=== PATIENT | female | born 1985 | race Caucasian/White ===

== ENCOUNTER → 2016-09-07 | Outpatient (CLI) | payer OTHER | LOC: FIMAGING 16:18 | PROVIDERS: ATTEND Physician Assistant | DX: M79.621 Pain in right upper arm (principal); C50.811 Malignant neoplasm of overlapping sites of right female breast ==

== ENCOUNTER → 2017-04-07 | Outpatient (CLI) | payer OTHER | LOC: FIMAGING 10:47 | PROVIDERS: ATTEND Internal Medicine Hematology & Oncology | DX: T88.8XXA Other specified complications of surgical and medical care, not elsewhere classified, initial encounter (principal); C50.811 Malignant neoplasm of overlapping sites of right female breast ==

== ENCOUNTER 2017-05-14 07:49 | Observation (INO) | payer OTHER ==
[2017-05-14] MEDS ORDERED: NS 1,000 ML IV ONE (08:00)
[2017-05-14] MEDS ORDERED: ONDANSETRON 4 MG/2 ML VIAL IVP ONE ×2 (08:00→08:05)
--- NOTE | 2017-05-14 08:08 | EDPHY ---
H & P Stated Complaint: epigastric pain - Personal History LMP (Females 10-55): Post Menopausal Current Tetanus/Diphtheria Vaccine: Yes Current Tetanus Diphtheria and Acellular Pertussis (TDAP): Yes - Medical/Surgical History Hx Asthma: No Hx Chronic Respiratory Disease: No Hx Diabetes: No Hx Cardiac Disease: No Hx Renal Disease: No Hx Cirrhosis: No Hx Alcoholism: No Hx HIV/AIDS: No Hx Splenectomy or Spleen Trauma: No Other PMH: PSH--APPY, EXP LAP, Breast CA, - Social History Smoking Status: Never smoked Time Seen by Provider: 05/14/17 07:59 HPI/ROS: CHIEF COMPLAINT: Right upper quadrant abdominal pain HISTORY OF PRESENT ILLNESS: 31-year-old female, remote history of appendectomy , complaining of right upper quadrant abdominal pain, nausea, vomiting, diarrhea since 09/20 this morning. She ate pizza for dinner last night. No back pain. No fever or chills. No diaphoresis. No chest pain. No URI symptoms. No cough. No dyspnea. REVIEW OF SYSTEMS: A ten point review of systems was performed and is negative with the exception of the items mentioned in the HPI PAST MEDICAL & SURGICAL HISTORY: Remote history of appendectomy. Double mastectomy secondary to breast cancer. SOCIAL HISTORY:Nonsmoker PHYSICAL EXAM (Prior to examination, patient consented to physical exam, hands were washed and my usual and customary physical exam procedures followed) 1) GENERAL: Well-developed, well-nourished, alert and oriented. Appears to be in no acute distress. 2) HEAD: Normocephalic, atraumatic 3) HEENT: Pupils equal, round, reactive to light bilaterally. Sclera anicteric. 4) NECK: Full range of motion, no meningeal signs. 5) LUNGS: Clear auscultation bilaterally, no wheezes, no rhonchi, no retractions. 6) HEART: Regular rate and rhythm, no murmur, no heave, no gallop. 7) ABDOMEN: No guarding, no rebound, no focal tenderness, negative McBurney's, positive Vasquez's, negative Rovsing's, negative peritoneal sign, 8) MUSCULOSKELETAL: Moving all extremities, no focal areas of tenderness, no obvious trauma. No peripheral edema or discoloration. 9) BACK: No CVA tenderness, no midline vertebral tenderness, no fluctuance, no step-off, no obvious trauma, no visual or palpable abnormality. 10) SKIN: No rash, no petechiae. 11) Psychiatric: Patient is oriented X 3, there is no agitation. DIFFERENTIAL DIAGNOSIS: In no particular order, including but not limited to biliary colic, cholecystitis, peptic ulcer disease, pancreatitis, and gastroenteritis. This is a partial list of diagnoses considered. These considerations are based on history, physical exam, past history and reassessment. (Quincy Fleming) Constitutional: Initial Vital Signs Temperature (C) 36.8 C 05/14/17 07:56 Heart Rate 65 05/14/17 07:56 Respiratory Rate 16 05/14/17 07:56 Blood Pressure 137/87 H 05/14/17 07:56 O2 Sat (%) 100 05/14/17 07:56 O2 Delivery Mode Nasal Cannula Allergies/Adverse Reactions: No Known Allergies Allergy (Unverified 05/14/17 07:55) Home Medications: Medication Instructions Recorded Adderall Xr 10 mg Capsule 05/14/17 Anastrozole 05/14/17 Venlafaxine HCl 05/14/17 Zoladex 05/14/17 Medical Decision Making - Diagnostics Imaging Results: Imaging Impressions Abdomen Ultrasound 05/14/17 08:05 Impression: Cholelithiasis with a positive Vasquez's sign, consistent with mild acute cholecystitis. Results called and discussed with Quincy Fleming, at 05/14/2017 9:10 ED Course/Re-evaluation: 8:08 a.m.: Care of patient under supervision of secondary supervising physician Dr Mccormack with whom I discussed care . Plan will be IV hydration, ultrasound, laboratory studies. 9:21 a.m.: Discussed the imaging results with radiologist, consultation with Dr. Bayron Brasher at this time who recommends surgical intervention. Patient last ate pizza for dinner last evening. She will be given IV antibiotic and admission to Dr. Brasher with plan on surgery later today (Quincy Fleming) I evaluated this patient with Arnold Fleming. I discussed the laboratory findings and discuss the ultrasound findings with radiologist Alfred Drake. This patient has cholelithiasis and most likely a gastrointestinal illness concomitantly. She will be admitted to get her gallbladder out since she wants it out. (Rao Mccormack) - Data Points Laboratory Results: Laboratory Results 05/14/17 08:15 05/14/17 09:18 05/14/17 05/14/17 05/14/17 09:18 08:15 08:15 WBC RBC Hgb Hct MCV MCH MCHC RDW Plt Count MPV Neut % (Auto) Lymph % (Auto) Freestone % (Auto) Eos % (Auto) Baso % (Auto) Nucleat RBC Rel Count Absolute Neuts (auto) Absolute Lymphs (auto) Absolute Monos (auto) Absolute Eos (auto) Absolute Basos (auto) Absolute Nucleated RBC Immature Gran % Immature Gran # Turbidity TNP Sodium 145 mEq/L mEq/L TNP (135-145) Potassium 4.3 mEq/L mEq/L TNP (3.5-5.2) Chloride 109 mEq/L mEq/L TNP (97-110) Carbon Dioxide 23 mEq/l mEq/l TNP (22-31) Anion Gap 13 mEq/L mEq/L TNP (8-16) BUN 15 mg/dL mg/dL TNP (7-23) Creatinine 0.8 mg/dL mg/dL TNP (0.6-1.0) Estimated GFR > 60 TNP Glucose 98 mg/dL mg/dL TNP (70-100) Calcium 9.4 mg/dL mg/dL TNP (8.5-10.4) Total Bilirubin 0.4 mg/dL mg/dL TNP (0.1-1.4) Conjugated Bilirubin 0.2 mg/dL mg/dL TNP (0.0-0.5) Unconjugated Bilirubin 0.2 mg/dL mg/dL TNP (0.0-1.1) AST 26 IU/L IU/L TNP (14-46) ALT 34 IU/L IU/L TNP (9-52) Alkaline Phosphatase 71 IU/L IU/L TNP (38-126) Total Protein 7.0 g/dL g/dL TNP (6.3-8.2) Albumin 4.0 g/dL g/dL TNP (3.5-5.0) Lipase 117 IU/L IU/L TNP (23-300) Beta HCG, Qual NEGATIVE Specimen Hemolysis TNP 05/14/17 08:15 WBC 6.02 10^3/uL 10^3/uL (3.80-9.50) RBC 4.67 10^6/uL 10^6/uL (4.18-5.33) Hgb 14.7 g/dL g/dL (12.6-16.3) Hct 45.0 % % (38.0-47.0) MCV 96.4 fL fL (81.5-99.8) MCH 31.5 pg pg (27.9-34.1) MCHC 32.7 g/dL g/dL (32.4-36.7) RDW 13.2 % % (11.5-15.2) Plt Count 213 10^3/uL 10^3/uL (150-400) MPV 10.8 fL fL (8.7-11.7) Neut % (Auto) 64.5 % % (39.3-74.2) Lymph % (Auto) 26.4 % % (15.0-45.0) Freestone % (Auto) 7.3 % % (4.5-13.0) Eos % (Auto) 0.7 % % (0.6-7.6) Baso % (Auto) 0.8 % % (0.3-1.7) Nucleat RBC Rel Count 0.0 % % (0.0-0.2) Absolute Neuts (auto) 3.88 10^3/uL 10^3/uL (1.70-6.50) Absolute Lymphs (auto) 1.59 10^3/uL 10^3/uL (1.00-3.00) Absolute Monos (auto) 0.44 10^3/uL 10^3/uL (0.30-0.80) Absolute Eos (auto) 0.04 10^3/uL 10^3/uL (0.03-0.40) Absolute Basos (auto) 0.05 10^3/uL 10^3/uL (0.02-0.10) Absolute Nucleated RBC 0.00 10^3/uL 10^3/uL (0-0.01) Immature Gran % 0.3 % % (0.0-1.1) Immature Gran # 0.02 10^3/uL 10^3/uL (0.00-0.10) Turbidity Sodium Potassium Chloride Carbon Dioxide Anion Gap BUN Creatinine Estimated GFR Glucose Calcium Total Bilirubin Conjugated Bilirubin Unconjugated Bilirubin AST ALT Alkaline Phosphatase Total Protein Albumin Lipase Beta HCG, Qual Specimen Hemolysis Medications Given: Discontinued Medications Sodium Chloride (Ns) 1,000 mls @ 0 mls/hr IV EDNOW ONE; Wide Open PRN Reason: Protocol Stop: 05/14/17 08:01 Last Admin: 05/14/17 08:20 Dose: 1,000 mls Ondansetron HCl (Zofran) 4 mg IVP EDNOW ONE Stop: 05/14/17 08:01 Last Admin: 05/14/17 08:20 Dose: 4 mg Ondansetron HCl (Zofran) 4 mg IVP EDNOW ONE Stop: 05/14/17 08:06 Last Admin: 05/14/17 08:25 Dose: Not Given Departure - Departure Disposition: [facility] Inpatient Acute Clinical Impression: Cholelithiasis Condition: Fair
[2017-05-14 08:43] LABS: PLATELET COUNT 213 10^3/uL (150-400)
--- NOTE | 2017-05-14 11:45 | ASMTCMCOM ---
CM Note CM Note Notes: Reviewed chart. Patient presented to the ER with pain in her abdomen/right upper quadrant; admitted for cholelithiasis requiring surgery later today. Pt has a boyfriend and lives in [place]. Anticipate pt will likely discharge home independently when medically stable. CM will cont to follow for any potential needs. Current Discharge Plan: Home independently Date Signed: 05/14/2017 11:44 AM Electronically Signed By:Lizeth Durbin RN
[2017-05-14] MEDS ORDERED: MIDAZOLAM 2 MG/2 ML VIAL IVP ONE (13:41)
--- NOTE | 2017-05-14 13:41 | PDANEPAE ---
ANE History of Present Illness cholecystitis, here for cholecystectomy ANE Past Medical History - Cardiovascular History Hx Hypertension: No Hx Arrhythmias: No Hx Chest Pain: No Hx Coronary Artery / Peripheral Vascular Disease: No - Pulmonary History Hx COPD: No Hx Asthma/Reactive Airway Disease: No Hx Sleep Apnea: No Sleep Apnea Screening Result - Last Documented: Negative - Endocrine History Hx Diabetes: No - Cancer History Hx Cancer: Yes Cancer History Comment: Breast ANE Review of Systems Review of Systems: - Exercise capacity Exercise capacity: >=4 METS ANE Patient History - Allergies Allergies/Adverse Reactions: No Known Allergies Allergy (Unverified 05/14/17 07:55) - Home Medications Home Medications: Amphet Asp and D/Amphet [Adderall 10 MG (*)] 30 mg PO DAILY PRN 05/14/17 [Last Taken Unknown] Anastrozole [Arimidex 1 mg (*)] 1 mg PO DAILY 05/14/17 [Last Taken 05/13/17] Goserelin Acetate [Zoladex] 3.6 mg SQ .MONTHLY 05/14/17 [Last Taken 04/21/17] Venlafaxine Xr [Effexor Xr] 150 mg PO DAILY 05/14/17 [Last Taken 05/13/17] - NPO status NPO Since - Liquids (Date): 05/13/17 NPO Since - Liquids (Time): 05:00 NPO Since - Solids (Date): 05/13/17 NPO Since - Solids (Time): 18:30 - Anes Hx Anes Hx: post operative nausea and vomiting - Smoking Hx Smoking Status: Never smoked - Alcohol Use Alcohol Use: Rarely - Family Anes Hx Family Anes Hx: none ANE Labs/Vital Signs - Labs Result Diagrams: 05/14/17 08:15 05/14/17 09:18 - Vital Signs Blood Pressure: 115/66 Heart Rate: 65 Respiratory Rate: 20 O2 Sat (%): 99 Height: 180.34 cm Weight: 108.862 kg ANE Physical Exam - Airway Neck exam: FROM Mallampati Score: Class 1 Mouth exam: normal dental/mouth exam - Pulmonary Pulmonary: no respiratory distress, clear to auscultation - Cardiovascular Cardiovascular: regular rate and rhythym, no murmur, rub, or gallop - ASA Status ASA Status: II ANE Anesthesia Plan Anesthesia Plan: general endotracheal anesthesia
[2017-05-14] MEDS ORDERED: MIDAZOLAM 2 MG/2 ML VIAL ONE (13:43)
[2017-05-14] MEDS ORDERED: SCOPOLAMINE HYDROBROMIDE 1 MG/3 DAYS PATCH TD ONE (13:43)
[2017-05-14] MEDS ORDERED: SCOPOLAMINE HYDROBROMIDE 1 MG/3 DAYS PATCH TD SCH (13:45)
[2017-05-14] MEDS ORDERED: fentaNYL 100 MCG/2 ML INJ ONE ×3 (13:53→15:28)
[2017-05-14] MEDS ORDERED: PROPOFOL 200 MG/20 ML VIAL ONE (13:53)
[2017-05-14] MEDS ORDERED: ROCURONIUM 50 MG/5 ML VIAL ONE ×2 (13:56→14:28)
[2017-05-14] MEDS ORDERED: LIDOCAINE 2% 100 MG/5 ML SYR ONE (13:56)
[2017-05-14] MEDS ORDERED: BUPIVACAINE 0.5% 30 ML SDV ONE (14:03)
[2017-05-14] MEDS ORDERED: NALOXONE HCL 0.4 MG/ML INJ IVP PRN (15:10)
[2017-05-14] MEDS ORDERED: fentaNYL 100 MCG/2 ML INJ IVP PRN (15:10)
[2017-05-14] MEDS ORDERED: ONDANSETRON 4 MG/2 ML VIAL IVP PRN ×2 (15:10→16:07)
[2017-05-14] MEDS ORDERED: HYDROmorphONE/DILAUDID 1 MG/ML INJ IVP PRN (15:10)
--- NOTE | 2017-05-14 15:10 | POSTANESTH ---
Post Anesthetic Evaluation Cardiovascular Status: Normal, Stable, Similar to Pre-Op Cond Respiratory Status: Normal, Stable, Similar to Pre-op Cond. Level of Consciousness/Mental Status: Can Participate in Eval, Alert and Oriented Pain Control: Adequate, Prn Tx Ordered Nausea/Vomiting Control: Adequate, Prn Tx Ordered Complications Possibly Related to Anesthesia: None Noted
[2017-05-14] MEDS ORDERED: ONDANSETRON 4 MG/2 ML VIAL ONE (15:39)
--- NOTE | 2017-05-14 16:04 | POSTOPPROG ---
Post Op Note Date of Operation: 05/14/17 Surgeon: Bayron Brasher Anesthesiologist: LISSETH Anesthesia: GET(General Endotracheal) Pre-op Diagnosis: ACUTE CHOLEYSTITIS Post-op Diagnosis: SAME Indication: PAIN Procedure: LAP CHOLY Findings: EDEMATOUS GALLBLADDER WITH MULTIPLE STONES AND SMALL DUCTS Inf/Abcess present in the surg proc area at time of surgery?: Yes Depth: Organ Space EBL: Minimal Complications: NONE Specimen(s): GALLBLADDER
[2017-05-14] MEDS ORDERED: ADDERALL 10 MG TAB PO PRN (16:09)
[2017-05-14] MEDS ORDERED: GOSERELIN ACETATE 3.6 MG SQ SCH (16:15)
[2017-05-14] MEDS ORDERED: D5W 1/2 NS W/ 20 KCl/L 1,000 ML IV SCH (16:15)
[2017-05-14] MEDS: HYDROmorphONE/DILAUDID 1 MG/ML INJ IVP PRN ×2 (16:59→19:25)
[2017-05-14] MEDS ORDERED: KETOROLAC 15 MG/1 ML SDV IVP SCH (18:00)
[2017-05-14] MEDS: KETOROLAC 15 MG/1 ML SDV IVP SCH (21:32)
[2017-05-14] MEDS: OXYCODONE/APAP 5/325 TAB PO PRN (21:44)
[2017-05-15] MEDS: KETOROLAC 15 MG/1 ML SDV IVP SCH ×2 (02:26→08:46)
[2017-05-15] MEDS: OXYCODONE/APAP 5/325 TAB PO PRN ×4 (02:26→11:00)
[2017-05-15 02:45] VITALS: O2SAT 98
[2017-05-15 08:00] VITALS: BP 103/75; PULSE 57; RESP 16; TEMP 98
[2017-05-15] MEDS ORDERED: ANASTROZOLE 1 MG TAB PO SCH (09:00)
[2017-05-15] MEDS ORDERED: VENLAFAXINE XR 150 MG CAP PO SCH (09:00)
--- NOTE | 2017-05-15 09:20 | SOAPPROG ---
SOAP Progress Note Assessment/Plan: Assessment/Plan: 31 Y F s/p lap vane. Doing well. D/c to home. S: eating, pain controlled, no n/v. O: alert, nad no jaundice no wob abd soft, inc cdi 05/15/17 09:19 Objective: Vital Signs Temp Pulse Resp BP Pulse Ox 36.6 C 57 L 16 103/75 98 05/15/17 07:20 05/15/17 07:20 05/15/17 07:20 05/15/17 07:20 05/15/17 07:20 05/14/17 05/15/17 05/16/17 05:59 05:59 05:59 Intake Total 2525 Balance 2525 ICD10 Worksheet Patient Problems: Problems Problem Status Onset Cholelithiasis Acute
[2017-05-22] MEDS ORDERED: GOSERELIN ACETATE 3.6 MG SQ SCH (09:00)
== END 2017-05-15 11:25 | disposition home or self-care (01) ==
LOC: FOB 11:00
PROVIDERS: ADMIT Surgery; ATTEND Surgery
PROC: 0FT44ZZ Resection of Gallbladder, Percutaneous Endoscopic Approach (ICD-10-PCS; principal; 2017-05-14 14:00)
DX: K80.10 Calculus of gallbladder with chronic cholecystitis without obstruction (principal); Z85.3 Personal history of malignant neoplasm of breast
CPT/HCPCS: 47562; 76705; G0378; 96374; J0690; J1170; J1885; J2001; J2250; J2405; J2704; J3010

== ENCOUNTER 2017-05-21 14:19 | Emergency (ER) | payer OTHER ==
[2017-05-21] MEDS ORDERED: PROPARACAINE 0.5% 15 ML OPHT DROP ONE (15:30)
--- NOTE | 2017-05-21 15:33 | EDPHY ---
H & P Time Seen by Provider: 05/21/17 15:13 HPI/ROS: CHIEF COMPLAINT: Right eye dilated HISTORY OF PRESENT ILLNESS: The patient is a 31-year-old female status post cholecystectomy 1 week ago. She noticed that her right eye was dilated when she woke at 8:45 a.m. this morning. She states that she has some blurred vision on distance. She has improved vision close up. She wears contact lenses normally. She has not changed her contact lens solution. She is but nothing in her eye recently. She denies any tarb-hxg-njiwsha medication. No trauma or fall. No headache. No focal weakness or numbness. Patient denies any facial symptoms. REVIEW OF SYSTEMS: My complete review of systems is negative except as mentioned in the HPI. Past Medical/Surgical History: Includes breast cancer Past surgical history: Appendectomy, double mastectomy, cholecystectomy Social history: Patient does not smoke Smoking Status: Never smoked Physical Exam: 37.0, 141/104, 16, 97% on room air GENERAL: Well-appearing, in no acute distress, alert. Visual acuity: Noted. Eyelids: Normal inspection, everted for exam. Conjunctiva and sclera: Normal inspection. No foreign material. No subconjunctival hemorrhage. No exudate. Not injected. Corneas: Normal inspection. Examined with fluorescein dye: No uptake, abrasion, or ulcer. EOMs: Intact. Pupils: Right pupil is dilated. Minimally responsive. No pupil constriction with accommodation. Anterior chambers: Normal inspection. No hyphema. No cells or flare. Posterior segments: Normal funduscopic exam HEENT: Eyes exam above, normal pharynx, no signs of dehydration. NECK: No thyromegaly, no lymphadenopathy, supple. RESPIRATORY: Clear to auscultation bilaterally, no rales, rhonchi or wheezing. CVS: Regular rate and rhythm, no rubs, murmurs, or gallops. ABDOMEN: Soft, nontender, nondistended, no organomegaly. BACK: Normal to inspection, no CVA tenderness. SKIN: Normal color, no rash, warm, dry. No pallor. EXTREMITIES: No pedal edema, no calf tenderness, no Homans sign or cords, no joint swelling. NEURO/PSYCH: Higher functions: Alert and Oriented x3. Normal speech and cognition. Normal mood and affect. Cranial nerves: Normal as tested. Cerebellar: Normal as tested. Good finger to nose, good [id number], normal gait. Peripheral exam: Normal motor exam. Normal sensation. Constitutional: Initial Vital Signs Temperature (C) 37.0 C 05/21/17 14:32 Respiratory Rate 16 05/21/17 14:32 Blood Pressure 141/104 H 05/21/17 14:32 O2 Sat (%) 97 05/21/17 14:32 O2 Delivery Mode Room Air Allergies/Adverse Reactions: No Known Allergies Allergy (Unverified 05/14/17 07:55) Home Medications: Medication Instructions Recorded Amphet Asp and D/Amphet [Adderall 30 mg PO DAILY PRN 05/14/17 10 MG (*)] Anastrozole [Arimidex 1 mg (*)] 1 mg PO DAILY 05/14/17 Goserelin Acetate [Zoladex] 3.6 mg SQ .MONTHLY 05/14/17 Venlafaxine Xr [Effexor Xr] 150 mg PO DAILY 05/14/17 oxyCODONE/APAP 5/325 [Percocet 1 - 2 tab PO Q4 PRN #30 tab 05/15/17 5/325 (*)] Medical Decision Making - Diagnostics Imaging Results: Imaging Impressions Brain MRI 05/21/17 16:20 Impression: 1. Empty sella which can be seen incidentally, as well as with idiopathic intracranial hypertension and other etiologies. 2. No acute intracranial findings. 3. Additional findings, as above. Findings discussed with Carolyn Mccormack MD on May 21, 2017 at 1711 hours. ED Course/Re-evaluation: In the emergency department I discussed possible etiologies with the patient. I answered all her questions. I paged Ophthalmology. I discussed case with Dr. Tom. He requested that I ask the patient if she had a scopolamine patch her surgery. She states she did but she took it off on Monday. She states she has not touched pat dry since that time. She is sure that her eye was not dilated in the last 2 days. He recommended that the patient not have further imaging at this time with a normal neuro exam. He recommend patient see him in 2 days if she continues to have a dilated pupil. The patient's brother is a physician. I spoke with him on the phone. After an explanation of the plan, he would prefer the patient an MRI prior to leaving the emergency department. This was ordered. MRI: Patient was noted to have an empty sella. No other abnormality noted. No swelling or compression on cranial nerves. 1745: I discussed the results with the patient. I answered all her questions. No new focal deficits on exam. She is given warnings prior to leaving. She will follow up with cartography teacher in 2 days if her symptoms persist. Differential Diagnosis: My differential includes but is not limited to traumatic mydriasis, medication reaction, cranial nerve palsy, mass, malignancy, CRAO, CRVO, glaucoma Departure - Departure Disposition: Home, Routine, Self-Care Clinical Impression: Pupil dilation Condition: Good Instructions: Blurred Vision (ED) Additional Instructions: Call Dr. Tom in to be seen in 2 days if you continue to have a dilated pupil. Return sooner if you have any focal neurologic deficits or any other control. Referrals: AL MOHAMUD [Other] - 2-3 days, if not improved Roxanne Tom MD [Medical Doctor] - 1-2 days without fail
[2017-05-21 17:56] VITALS: BP 123/89; PULSE 78; RESP 18; TEMP 98.2; O2SAT 96
== END 2017-05-21 17:54 | disposition home or self-care (01) ==
DX: H57.04 Mydriasis (principal); Z85.3 Personal history of malignant neoplasm of breast

== ENCOUNTER 2017-10-12 06:26 | Day surgery (SDC) | payer OTHER ==
--- NOTE | 2017-09-29 13:26 | GHP ---
[f rep st] PREOP HISTORY AND PHYSICAL DATE OF ADMISSION: 10/12/2017 PREOPERATIVE DIAGNOSIS: History of breast cancer, needs bilateral salpingo-oophorectomy for treatmen t of her breast cancer. SURGERY TO BE PERFORMED: Laparoscopic bilateral salpingo-oophorectomy. SURGERY DATE: October 12, 2017 at 8:15 am. HISTORY OF PRESENT ILLNESS: Mary is a 31-year-old 0 who was diagnosed with stage IIA mult icentric right breast cancer in 2015. She is status post bilateral mastectomy, chemotherapy, and rad iation, and she is on continuous anti-hormone therapy for her breast cancer. She is under care regim en at [facility] with Dr. Terry, and she had been on tamoxifen. Originally, she has been changed to Arimidex and originally was on Lupron but now is on anastrozole for hormonal suppression. She has d ecided with Dr. Terry that her treatment regimen would be dramatically simplified and hopefully she grant l have less side effects if she is made surgically menopausal instead of having to be created menopau yehuda with anti-hormone therapy, and she desires a bilateral salpingo-oophorectomy, and I am in agreeme nt with this. Patient has been amenorrheic since her breast cancer diagnosis 2 years ago and has no periods now. PAST OB HISTORY: She is 0 and has never been , does not desire to become ev er. PAST GYNECOLOGICAL HISTORY: She had a normal menstrual cycle in her life until October of 2015. She sanderson d menarche at age 16 with 5 days, moderate flow, moderate cramping. She had used oral contraceptive pills in the past. She has never had a history of an abnormal Pap smear. The most recent Pap smear was in January of 2016. It was negative with a negative HPV. PAST MEDICAL HISTORY: Significant for her breast cancer diagnosed at age 30, ERPR receptor positive. She has had full genetic testing and is negative for any known genetic variants at this time. She also has a history of attention deficit hyperactivity disorder and is treated symptomatically for thi s. PAST SURGICAL HISTORY: In 2003, she had an appendectomy. In 2015, she underwent her bilateral maste ctomy and reconstruction, and she will also have a modified reconstruction performed at the time of o ur surgery, and in April 2017, she had a laparoscopic cholecystectomy. ALLERGIES: She has no known drug allergies. MEDICATIONS: Effexor 70 mg daily, Adderall XR 30 mg daily, lorazepam 0.5 mg as needed, Zometa inject ions every 6 months, and anastrozole monthly which she hopes to be able to stop. SOCIAL HISTORY: She is engaged. She has been with her partner of 7 years. 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 She denies tobacco use. Is a social drinker 2-3 times a week. Denies drug use. Moder ate caffeine, and moderate exercise. FAMILY HISTORY: Significant for a mother with diabetes and thyroid disease and high blood pressure. Her father has high blood pressure as well. Her aunt had breast cancer at age 40, and her grandfath er had prostate cancer, and that is all significant family history. REVIEW OF SYSTEMS: Negative 10-point review of systems except for pertinent positives as above. OBJECTIVE: VITAL SIGNS: Weight is 247, blood pressure 114/60. GENERAL: She is a well-developed, w ell-nourished white female in no acute distress. LUNGS: Clear to auscultation bilaterally. HEART: Regular rate and rhythm no murmur. ABDOMEN: Soft, nontender, nondistended. Normal bowel sounds. PELVIC: She has a normal pelvic exam, normal external genitalia, normal nulliparous cervix. Uterus and ovaries are within normal limits. No masses. ASSESSMENT AND PLAN: A 31-year-old 0 with a history of stage II breast cancer, needs a bilat eral salpingo-oophorectomy to simplify her breast cancer treatment regimen. She is scheduled for the surgery. She understands the risks and benefits with risks including bleeding; infection; damage to internal organs, uterus, tubes, ovaries, bowel, bladder, nerves, blood vessels, ureters; need for op en procedure; need for additional procedures. /[id number]/MODL
[2017-10-12] MEDS ORDERED: ceFAZolin 2 GM/DEXTROSE 100 ML IV ONE (06:34)
[2017-10-12] MEDS ORDERED: LR 1,000 ML IV ONE (06:35)
[2017-10-12] MEDS ORDERED: fentaNYL 250 MCG/5 ML INJ ONE (07:56)
[2017-10-12] MEDS ORDERED: PROPOFOL/EMULSION 500 MG/50 ML BOTTLE IV ONE ×3 (07:57→10:49)
[2017-10-12] MEDS ORDERED: MIDAZOLAM 2 MG/2 ML VIAL ONE (08:06)
--- NOTE | 2017-10-12 08:09 | PDHPUP ---
History & Physical Update H&P update statement: This history and physical update is based on an assessment of the patient which was completed after admission or registration (within 24 hours), but prior to the surgery/procedure. H&P update: H&P reviewed & patient examined, no change in patient's condition since H&P completed
[2017-10-12] MEDS ORDERED: MIDAZOLAM 2 MG/2 ML VIAL IVP ONE (08:11)
[2017-10-12] MEDS ORDERED: BUPIVACAINE/EPI 0.5% 30 ML SDV ONE (08:12)
[2017-10-12] MEDS ORDERED: BACITRACIN ZINC 14.2 GM OINTTUBE TP ONE (08:12)
[2017-10-12] MEDS ORDERED: LIDOCAINE 1% 300 MG/30 ML SDV ONE (08:13)
[2017-10-12] MEDS ORDERED: EPINEPHrine 30 MG/30 ML MDV (0.1 MG/0.1 ML) ONE ×2 (08:13→11:24)
--- NOTE | 2017-10-12 08:14 | PDANEPAE ---
ANE History of Present Illness 31 year old woman for salpingo oophorectomy and breast implant exchange. ANE Past Medical History - Cardiovascular History Hx Hypertension: No Hx Arrhythmias: No Hx Chest Pain: No Hx Coronary Artery / Peripheral Vascular Disease: No Hx CHF / Valvular Disease: No Hx Palpitations: No - Pulmonary History Hx COPD: No Hx Asthma/Reactive Airway Disease: No Hx Recent Upper Respiratory Infection: No Hx Oxygen in Use at Home: No Hx Sleep Apnea: No Sleep Apnea Screening Result - Last Documented: Negative - Neurologic History Hx Cerebrovascular Accident: No Hx Seizures: No Hx Dementia: No - Endocrine History Hx Diabetes: No - Renal History Hx Renal Disorders: No - Liver History Hx Hepatic Disorders: No - Neurological & Psychiatric Hx Hx Neurological and Psychiatric Disorders: Yes Neurological / Psychiatric History 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 depression - Cancer History Hx Cancer: Yes Cancer History Comment: Breast - Congenital Disorder History Hx Congenital Disorders: No - GI History Hx Gastrointestinal Disorders: No - Other Health History Other Health History: none - Chronic Pain History Chronic Pain: No - Surgical History Prior Surgeries: choleystectomy. bilat mastectomy with lymph node removal 2015. right arm resticted ANE Review of Systems Review of systems is: negative Review of Systems: - Exercise capacity METS (RN): 5 METS ANE Patient History - Allergies Allergies/Adverse Reactions: No Known Allergies Allergy (Verified 09/25/17 11:11) - Home Medications Home Medications: Amphet Asp and D/Amphet [Adderall 10 MG (*)] 05/14/17 [Last Taken 10/11/17] Anastrozole [Arimidex 1 mg (*)] 05/14/17 [Last Taken 10/12/17 05:00] Goserelin Acetate [Zoladex] 05/14/17 [Last Taken 10/06/17] Venlafaxine Xr [Effexor Xr] 05/14/17 [Last Taken 10/12/17 05:00] Lorazepam 09/25/17 [Last Taken 10/11/17] Multivitamins 09/25/17 [Last Taken 10/05/17] - NPO status NPO Since - Liquids (Date): 10/12/17 NPO Since - Liquids (Time): 05:00 NPO Since - Solids (Date): 10/11/17 NPO Since - Solids (Time): 21:00 - Smoking Hx Smoking Status: Never smoked - Family Anes Hx Family Hx Anesthesia Complications: none ANE Labs/Vital Signs - Vital Signs Blood Pressure: 116/78 Heart Rate: 72 Respiratory Rate: 16 O2 Sat (%): 96 Height: 180.34 cm Weight: 108.862 kg ANE Physical Exam - Airway Neck exam: FROM Mallampati Score: Class 1 Mouth exam: normal dental/mouth exam - Pulmonary Pulmonary: no respiratory distress - Cardiovascular Cardiovascular: regular rate and rhythym - ASA Status ASA Status: II ANE Anesthesia Plan Anesthesia Plan: general endotracheal anesthesia
[2017-10-12] MEDS ORDERED: ceFAZolin 1 GM/5 ML SYR ONE ×2 (08:16→11:44)
[2017-10-12] MEDS ORDERED: GENTAMICIN SULFATE 80 MG/2 ML VIAL ONE ×2 (08:16→11:43)
[2017-10-12] MEDS ORDERED: BACITRACIN 50,000 UNITS/10 ML SYR IRR ONE ×2 (08:16→11:44)
[2017-10-12] MEDS ORDERED: SCOPOLAMINE HYDROBROMIDE 1 MG/3 DAYS PATCH TD ONE (08:32)
[2017-10-12] MEDS ORDERED: METHYLENE BLUE 0.5% 50 MG/10 ML AMP ONE (08:35)
[2017-10-12] MEDS ORDERED: SCOPOLAMINE HYDROBROMIDE 1 MG/3 DAYS PATCH TD SCH (08:45)
[2017-10-12] MEDS ORDERED: fentaNYL 100 MCG/2 ML INJ IVP PRN (08:58)
[2017-10-12] MEDS ORDERED: ONDANSETRON 4 MG/2 ML VIAL IVP PRN (08:58)
[2017-10-12] MEDS ORDERED: ALBUTEROL 3 ML DEYVIAL IH PRN (08:58)
[2017-10-12] MEDS ORDERED: DEXAMETHASONE 4 MG/ML VIAL IVP PRN (08:58)
[2017-10-12] MEDS ORDERED: NALOXONE HCL 0.4 MG/ML INJ IVP PRN (08:58)
[2017-10-12] MEDS ORDERED: HYDROCODONE/APAP 5/325 TAB PO PRN ×2 (08:58→10:03)
[2017-10-12] MEDS ORDERED: ACETAMINOPHEN 500 MG TAB PO PRN (08:58)
[2017-10-12] MEDS ORDERED: PROMETHAZINE HCL 25 MG/ML INJ IVP PRN (08:58)
[2017-10-12] MEDS ORDERED: LABETALOL HCL 5 MG/ML 20 ML MDV IVP PRN (08:58)
[2017-10-12] MEDS ORDERED: oxyCODONE IR 5 MG TAB PO PRN (08:58)
[2017-10-12] MEDS ORDERED: LR 500 ML IV PRN (08:58)
[2017-10-12] MEDS ORDERED: MEPERIDINE 25 MG/0.5 ML AMP IVP PRN (08:58)
[2017-10-12] MEDS ORDERED: LABETALOL HCL 5 MG/ML 20 ML MDV ONE (09:35)
[2017-10-12] MEDS ORDERED: SILVER NITRATE APPLICATOR 1 APPL TP ONE (09:54)
[2017-10-12] MEDS: BUPIVACAINE 0.25% 30 ML SDV ONE ×2 (09:58→13:18)
[2017-10-12] MEDS ORDERED: IBUPROFEN 600 MG TAB PO PRN (10:03)
[2017-10-12] MEDS ORDERED: HYDROmorphONE/DILAUDID 2 MG/ML INJ ONE (10:08)
[2017-10-12] MEDS ORDERED: LIDO/EPI 1% **for epidural** 30 ML SDV ONE (10:08)
--- NOTE | 2017-10-12 10:08 | POSTOPPROG ---
Post Op Note Date of Operation: 10/12/17 Surgeon: Bernie العلي Tax Compliance Agent: Dr. Kassy Bo Anesthesiologist: Dr. Balbina Mitchell Anesthesia: GET(General Endotracheal) Pre-op Diagnosis: breast cancer needing oopherectomy for treatment Post-op Diagnosis: same, omental adhesions to abdominal wall Procedure: Laparoscopic Bilateral Salpingo-oopherectomy, lysis of adhesions Inf/Abcess present in the surg proc area at time of surgery?: No Depth: Organ Space EBL: Minimal Total fluids administered: 1000 Complications: none Specimen(s): bilateral fallopian tubes and ovaries
--- NOTE | 2017-10-12 10:49 | GOP ---
[f rep st] OPERATIVE REPORT DATE OF OPERATION: 10/12/2017 SURGEON: Bernie العلي MD [facility] OPERATOR: Kassy Bo DO. ANESTHESIA: General anesthesia. ANESTHESIOLOGIST: Glendy Mitchell MD. PREOPERATIVE DIAGNOSIS: History of breast cancer requiring oophorectomy for treatment. POSTOPERATIVE DIAGNOSIS: History of breast cancer requiring oophorectomy for treatment. Lysis of ab dominal adhesions. PROCEDURE PERFORMED: Laparoscopic bilateral salpingo-oophorectomy and lysis of abdominal adhesions. FINDINGS: SPECIMENS: Bilateral tubes and ovaries. The patient is still under anesthesia currently and her 2nd portion of her procedure, her revised rec onstruction, is taking place now and that will be dictated separately. ESTIMATED BLOOD LOSS: Less than 50 cc. INDICATIONS: The patient is a 31-year-old 0 who was diagnosed with stage IIA multicentric ri ght breast cancer in 2016. She is status post bilateral mastectomy, chemotherapy, and radiation, and she is on continuous anti hormone therapy for her breast cancer. She is under care at [facility] with Dr. Terry. She has been on tamoxifen, Arimidex, Lupron, and now anastrozole for h ormonal suppression. She and Dr. Terry have decided that her treatment regimen would be dramatically s implified and hopefully she would have much less side effects if she could become surgically menopaus al, and she wishes to have her ovaries removed. The patient is not BRCA mutation positive. The daniel ent was consented for the procedure. She understood the risks and benefits, the risks including blee ding, infection, damage to internal organs, uterus, tubes, ovaries, bowel, bladder, nerves, blood ves sels, ureters, need for additional procedures, need for open procedure, and menopausal symptoms after removal of her ovaries. She understood these risks and benefits and agreed to proceed. DESCRIPTION OF PROCEDURE: Patient was taken to the operating room where she was placed under general anesthesia without difficulty. She was prepped and draped in the dorsal lithotomy position, and a F oley catheter was placed in her bladder. After adequate anesthesia was documented and a WHO time-out was performed, an open-sided speculum was placed in the vagina, and a single-tooth tenaculum was use d to grasp the anterior lip of the cervix. Her ParaGard IUD was removed without difficulty. An acor n uterine manipulator was placed through the cervical os and attached to the single-tooth tenaculum. The patient was then placed flat and attention was turned to the abdominal portion of the procedure. After injection of Marcaine in her previous cholecystectomy incision inferior umbilicus, a transver se skin incision was made there, and transverse incision was extended there. A 0 degree Optiview tro car was placed under direct visualization in the infraumbilical space. The peritoneum was entered an d pneumoperitoneum was created without difficulty with carbon dioxide gas. The patient was placed in steep Trendelenburg and inspection of the pelvis was made. There was noted to be an adhesion from the umbilicus into her right upper quadrant, likely from her recent cholecyst ectomy. After injection of Marcaine, a 5 mm skin incision was placed in the right lower quadrant and then an atraumatic trocar was placed in that incision under direct visualization, and a 1 cm trocar was placed in the left lower quadrant, and that was placed under direct visualization. The uterus, t ubes, and ovaries were grossly within normal limits. There were no abnormalities visualized in the p sallie. The left fallopian tube was grasped at the fimbriated end, elevated and inspection in the lower quadr ant revealed a normal ureter, normal location. The infundibulopelvic ligament was grasped with the L igaSure, doubly cauterized and suture ligated, and dissection was performed along the mesosalpinx to the cornual region of the uterus and the tube and ovary removed with the LigaSure. Good hemostasis w as assured. The tube and ovary were placed in the posterior cul-de-sac, and the right fallopian tube was grasped at the fimbriated end and the identical procedure was performed with the LigaSure along the infundibulopelvic ligament, mesosalpinx, and up to the cornual region of the uterus. Both tubes and ovaries were removed without difficulty. They were placed in a laparoscopic bag and removed thro ugh the 1 cm port. Attention was then turned to the abdominal adhesion and moving the camera to the right lower quadrant port, we were able to visualize the adhesion and carefully dissect the adhesive tissue from the omen kishor, and there was no bowel or vital structures in this adhesion. This was removed with the LigaSure with dissection along the abdominal wall to the upper quadrant where the adhesion appeared to be thi cker and possibly involving bowel structure, and we stopped. Good visualization was made during the entire lysis of adhesion. There were no vital structures and good hemostasis was assured. Inspectio n of the pelvis again revealed good hemostasis along the adnexal pedicles. The 1 cm trocar site fascia was closed with 0 Vicryl under direct visualization. Pneumoperitoneum wa s allowed to escape. Skin was closed with 4-0 Monocryl, and the tenaculum and uterine manipulator we re removed also assuring good hemostasis. The patient tolerated this part of the procedure well. Sp onge, lap, needle, and instrument counts were correct x2. FLUID REPLACED: 1000 cc. URINE OUTPUT: 75 cc. /[id number]/MODL
[2017-10-12] MEDS ORDERED: HEPARIN 5,000 UNIT/0.5 ML INJ ONE (11:50)
--- NOTE | 2017-10-12 12:33 | POSTOPPROG ---
Post Op Note Date of Operation: 10/12/17 Surgeon: Nick Khan Industrial Gas Fitter: Acosta ANGUIANO Anesthesia: GET(General Endotracheal) Pre-op Diagnosis: breast cancer, bilateral abscene of breasts` Post-op Diagnosis: Same Indication: Breast assymetry Procedure: Bilateral implant exchange, capsulorraphy, right breast fat grafting Inf/Abcess present in the surg proc area at time of surgery?: No EBL: Minimal (20cc) Total fluids administered: 1400 Complications: none Specimen(s): none
--- NOTE | 2017-10-12 13:15 | GOP ---
[f rep st] OPERATIVE REPORT DATE OF OPERATION: 10/12/2017 SURGEON: Nick Khan MD [facility] NURSE: Acosta Mcclure, certified shorthand reporter. ANESTHESIA: General endotracheal. PREOPERATIVE DIAGNOSIS: Breast cancer and bilateral absence of breast and nipples. POSTOPERATIVE DIAGNOSIS: Breast cancer and bilateral absence of breast and nipples. PROCEDURE PERFORMED: 1. Bilateral implant exchange. 2. Bilateral capsulorrhaphy and capsulectomy. 3. Right breast fat grafting. FINDINGS: Bilateral intact implants SPECIMENS: None. ESTIMATED BLOOD LOSS: For my portion of the case, was 20 cc. INDICATIONS: The patient is a very pleasant 31-year-old female who is well known to me. She has undergone breast reconstruction and had some asymmetry as well as deficiencies of her inframammary fold on the right. She, therefore, presented today for bilateral breast revision, implant exchange, and the above- mentioned procedures. DESCRIPTION OF PROCEDURE: The patient was previously met in my office where the risks and benefits were discussed with her at length which include but not limited to infection, bleeding, hematoma, seroma, injury to the implant, implant rupture, capsular contracture, asymmetries, fat necrosis, mastectomy skin flap paresthesias as well as partial or total necrosis and further need for revision surgeries. She was agreeable to this and, therefore, signed the operative consent. She was then brought into the operating room. This was a combined case with Dr. العلي of gynecology. She will be dictating the bilateral oophorectomy portion of the case. We began our portion of the case by beginning with new sterile equipment and reprepping. We began by tumescing the abdomen with 500 cc of tumescent solution which consisted of 1 L of normal saline, 30 cc of 1% lidocaine, and 1 amp of epinephrine. This was injected with a cannula, after 2 stab incisions were made just above the hips on either side, and allowed to sit for its vasoconstrictive effects. We then re-prepped the entire chest and belly. Incisions were made over the old mastectomy scar, and we started on the right breast. A 15-blade was used to open up the mastectomy skin flaps and enter the subpectoral pocket where we encounter the right-sided implant which was flipped 180 degrees. This was taken out and examined. There were no cracks or ruptures seen. The pocket was then washed out with copious amounts of sterile saline. A lateral and inferior capsulectomy was then performed. This was taken out and scored in order to redefine the fold as well as redefine the pocket. We then used 2-0 Vicryl pop sutures both laterally as well as inframammary fold to define both the fold as well as the lateral aspect of the pocket. This was then reinforced with a 2-0 V -Loc suture running. We then put a sizer in and blew this up to 750 cc. This was a 100 cc increase in her original implants and found to have better shape. We left the sizer in and then did the same exact thing on the left side. Once we entered the subpectoral pocket, again we encountered a flipped implant. The same thing was done as far as the capsulectomy. The 2-0 Vicryl sutures and then the 2-0 V-Loc suture to redefine the fold as well as medialize the pocket, and this was also inflated to 750 cc once sterile sizer was placed. We then agreed upon Jose Miles cohesive breast implants [id number] on both sides. My compounding assistant and I changed our gloves. The pocket was washed out with triple- antibiotic saline and introduced with a no-touch technique in both pockets. The subpectoral pocket was then closed, reapproximating the AlloDerm and the muscle, with a running 2-0 Vicryl suture. The skin was then closed with 3-0 Monocryl subdermal sutures and left open. We then harvested fat from the abdomen. Approximately 180 cc of lipoaspirate was harvested then washed in heparinized saline. This was then introduced with 3 cc with a cannula into the right breast where approximately 70 cc were introduced into the right breast superior, medial, and inferior poles in order to define and give more shape. The stab incisions were then closed with 5-0 fast gut sutures on the abdomen. The remaining mastectomy skin flap incisions were then closed with a running 4- 0 Monocryl suture. Support bra was placed. Fluffs, TopiFoam, and an abdominal binder were placed upon the abdomen. There were no immediate complications. The count was correct at the end of the case. She was awoken and taken to PACU in good condition. IV FLUIDS: 1400. URINE OUTPUT: Not recorded. COMPLICATIONS: None. /[id number]/MODL MTDD
[2017-10-12] MEDS ORDERED: fentaNYL 100 MCG/2 ML INJ ONE (13:28)
[2017-10-12] MEDS ORDERED: HYDROCODONE/APAP 5/325 TAB ONE (13:32)
[2017-10-12] MEDS ORDERED: IBUPROFEN 200 MG TAB PO ONE (13:48)
--- NOTE | 2017-10-12 14:08 | POSTANESTH ---
Post Anesthetic Evaluation Cardiovascular Status: Normal, Stable Respiratory Status: Normal, Stable Level of Consciousness/Mental Status: Can Participate in Eval Pain Control: Adequate, Prn Tx Ordered Nausea/Vomiting Control: Adequate, Prn Tx Ordered Complications Possibly Related to Anesthesia: None Noted
[2017-10-12 16:10] VITALS: BP 119/70
[2017-10-15] MEDS ORDERED: PATCH REMOVAL 1 EA PATCH TD SCH (08:34)
== END 2017-10-12 16:34 | disposition home or self-care (01) ==
LOC: FSGY 06:26
PROVIDERS: ATTEND Obstetrics & Gynecology
PROC: 0UT74ZZ Resection of Bilateral Fallopian Tubes, Percutaneous Endoscopic Approach (ICD-10-PCS; principal; 2017-10-12 08:15)
PROC: 0UT24ZZ Resection of Bilateral Ovaries, Percutaneous Endoscopic Approach (ICD-10-PCS; principal; 2017-10-12 08:15)
DX: Z40.02 Encounter for prophylactic removal of ovary(s) (principal); Z85.3 Personal history of malignant neoplasm of breast; Z90.13 Acquired absence of bilateral breasts and nipples; Z17.0 Estrogen receptor positive status [ER+]; F90.9 Attention-deficit hyperactivity disorder, unspecified type
CPT/HCPCS: C1789; J0171; J0690; J1170; J1580; J1644; J2250; J2704; J3010; Q9968

== ENCOUNTER → 2018-06-06 | Outpatient (CLI) | payer OTHER | LOC: BMCIMAGING 14:41 | PROVIDERS: ATTEND Internal Medicine Hematology & Oncology | DX: Z13.820 Encounter for screening for osteoporosis (principal); Z78.0 Asymptomatic menopausal state; Z85.3 Personal history of malignant neoplasm of breast; Z90.710 Acquired absence of both cervix and uterus ==